=== PATIENT | female | born 1990 | race Caucasian/White ===

== ENCOUNTER 2016-04-28 05:37 | Inpatient (IN) | payer OTHER ==
[~2016-04-28] VITALS: Ht 165.1 cm; Wt 86.3 kg
[2016-04-28] VITALS (14 sets, daily range): BP systolic 107–134; BP diastolic 51–79; PULSE 65–92; RESP 16–20; Ht 165.1 cm; Wt 86.3 kg
[2016-04-28] MEDS ORDERED: OXYTOCIN 30 UNITS/LR 500 ML IV PRN ×2 (06:00→15:30)
[2016-04-28] MEDS ORDERED: METHYLERGONOVINE 0.2 MG INJ IM PRN ×2 (06:00→15:30)
[2016-04-28] MEDS ORDERED: MISOPROSTOL 200 MCG TAB PR PRN ×2 (06:00→15:30)
[2016-04-28] MEDS ORDERED: OXYTOCIN 30 UNITS/LR 500 ML IV SCH ×2 (06:00→07:00)
[2016-04-28] MEDS ORDERED: CARBOPROST 250 MCG INJ IM PRN ×2 (06:00→15:30)
[2016-04-28] MEDS: LACTATED RINGER'S 1,000 ML IV SCH ×3 (06:53→22:36)
[2016-04-28 07:05] LABS: INR 0.95; PROTIME 12.7 Sec (12.2-14.2)
[2016-04-28] MEDS ORDERED: PRENAT PO (07:05)
[2016-04-28] MEDS ORDERED: FERR325C PO (07:05)
[2016-04-28 07:06] LABS: PARTIAL THROMBOPLASTIN TIME 29.5 Sec (25.0-35.0)
[2016-04-28 07:07] LABS: BASOPHILS % 0.5 % (0.0-2.0); EOSINOPHILS # 0.1 10^3/ul (0.0-0.5); EOSINOPHILS % 1.9 % (0.0-7.0); HEMATOCRIT 40.1 % (37.0-47.0); HEMOGLOBIN 13.9 g/dl (12.0-16.0); LYMPHOCYTES # 2.2 10^3/ul (0.8-2.9); LYMPHOCYTES % 30.1 % (15.0-51.0); MEAN CORPUSCULAR HEMOGLOBIN 33.6 pg (29.0-33.0); MEAN CORPUSCULAR HGB CONC 34.6 g/dl (32.0-37.0); MEAN CORPUSCULAR VOLUME 97.2 fl (82.0-101.0); MEAN PLATELET VOLUME 8.4 fl (7.4-10.4); MONOCYTE # 0.7 10^3/ul (0.3-0.9); MONOCYTES % 9.2 % (0.0-11.0); NEUTROPHIL # 4.2 10^3/ul (1.6-7.5); NEUTROPHILS % 58.3 % (39.0-77.0); PLATELET COUNT 239 10^3/UL (140-440); RED BLOOD COUNT 4.13 10^6/ul (4.20-5.40); RED CELL DISTRIBUTION WIDTH 12.7 % (11.5-14.5); UNCORRECTED WBC 7.2 10^3/ul (4.8-10.8); WHITE BLOOD COUNT 7.2 10^3/ul (4.8-10.8)
[2016-04-28 07:09] LABS: CONDITION 1
[2016-04-28] MEDS ORDERED: CITRIC ACID/NA CITRATE 30 ML CUP ONE (07:28)
[2016-04-28] MEDS ORDERED: CITRIC ACID/NA CITRATE 30 ML CUP PO ONE ×2 (07:30→09:30)
[2016-04-28] MEDS ORDERED: OXYTOCIN 10 UNIT INJ ONE ×2 (08:11→09:35)
[2016-04-28] MEDS ORDERED: morphine SULFATE/PF (10 MG/10 ML) INJ ONE (08:11)
[2016-04-28] MEDS: CEFAZOLIN 2 GM/50 ML (PMX) 50 ML IV SCH ×2 (09:00→09:16)
[2016-04-28] MEDS ORDERED: PHENYLephrine (100 MCG/ML) 5ML SYG ONE (09:08)
[2016-04-28] MEDS ORDERED: HYDROmorphONE 1 MG/ML SYG IV PRN ×2 (09:30)
[2016-04-28] MEDS ORDERED: ZOLPIDEM 5 MG TAB PO PRN (09:30)
[2016-04-28] MEDS ORDERED: morphine (1 MG/ML) 10ML SYRINGE IV PRN ×3 (09:30)
[2016-04-28] MEDS ORDERED: NALBUPHINE HCL (10 MG/1 ML) INJ IV PRN (09:30)
[2016-04-28] MEDS ORDERED: NALOXONE (0.4 MG/ML) INJ IV PRN (09:30)
[2016-04-28] MEDS ORDERED: MEPERIDINE 25 MG INJ IV PRN (09:30)
[2016-04-28] MEDS ORDERED: HYDROCODONE/APAP (5/325) TAB PO PRN (09:30)
[2016-04-28] MEDS ORDERED: morphine 4 MG/ML VIAL IV PRN (09:30)
[2016-04-28] MEDS ORDERED: ACETAMINOPHEN 500 MG TAB PO PRN (09:30)
[2016-04-28] MEDS ORDERED: ONDANSETRON 4 MG INJ IV PRN ×2 (09:30)
[2016-04-28] MEDS ORDERED: HYDROmorphONE (0.2 MG/ML) 10ML SYG IV PRN ×3 (09:30)
[2016-04-28] MEDS ORDERED: TRIMETHOBENZAMIDE 100 MG/ML VIAL IM PRN (09:30)
[2016-04-28] MEDS ORDERED: DIPHENHYDRAMINE 50 MG INJ IV PRN ×2 (09:30)
[2016-04-28] MEDS ORDERED: morphine 2 MG INJ IV PRN (09:30)
[2016-04-28] MEDS ORDERED: DEXAMETHASONE 4 MG/ML 1 ML INJ ONE (09:35)
[2016-04-28] MEDS ORDERED: KETOROLAC 30 MG INJ ONE (09:35)
[2016-04-28] MEDS ORDERED: ONDANSETRON 4 MG INJ ONE (09:35)
--- NOTE | 2016-04-28 10:30 | HP ---
Date/Time of Note Date/Time of Note DATE: 04/28/16 TIME: 10:22 OB - History Hx of Present Free Text/Dictation 26 years old female [employer] 3 para 2 history of previous the EDC of May 05, 2016 admitted to [facility] at 39 weeks section to undergo a repeat section since patient has requested bilateral tubal ligation she would have this procedure with her section she has been counseled regarding failure rate of tubal ligation increased risk of ectopic , future failure to conceive and she has consented for this procedure. This patient has been under the care of the 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 Every 28-32 days lasting for 5 days history of 2 previous section and arm surgery and years ago Allergies: She is allergic to latex Social habits: Denies a smoking or drinking Review of system then normal Estimated Due Date: May 05, 2016 : 3 Para: 2 Care: None Ultrasounds: Normal mid trimester US Obstetrical Complications: None Medical Complications: None Past Family/Social History * Past Medical, Surgical, Family and Obstetric Histories reviewed from chart. Rubella: immune RPR/VDRL: Negative GBS Status: Negative HBsAG: Negative OB Admission Exam Vital Signs Vital Signs Vital Signs Date Time Temp Pulse Resp B/P Pulse Ox O2 Delivery O2 Flow Rate FiO2 04/28/16 06:45 98.0 91 18 134/79 Room Air Physical Exam HEENT: WNL Heart: Rhythm Normal Lungs: Clear, Equal Abdomen: WNL Extremities: Normal Reflexes: Normal Cervical Dilatation: None Effacement: 0% Station: -2 Membranes: Intact Heart Rate: 130's Decelerations: No Decelerations Last 72 hours Lab Results CBC & BMP 04/28/16 06:20 ROSIE JACKSON MD Apr 28, 2016 10:30
--- NOTE | 2016-04-28 12:58 | OPR ---
DATE OF OPERATION: 04/28/2016 PREOPERATIVE DIAGNOSES: 1. Intrauterine at 39 weeks' gestation. 2. History of 2 previous sections. 3. Request for voluntary sterilization, bilateral tubal ligation. POSTOPERATIVE DIAGNOSES: 1. Intrauterine at 39 weeks' gestation. 2. History of 2 previous sections. 3. Request for voluntary sterilization, bilateral tubal ligation. PROCEDURE: Repeat transverse low cervical section, bilateral tubal ligation. SURGEON: Rosie Nelson MD DIRECTOR [employer]: Marleny Lin MD ANESTHESIA: Spinal. ANESTHESIOLOGIST: Dr. Yeh FINDINGS: Live baby boy with Apgars 8 and 9. DETAILS OF THE PROCEDURE: Under satisfactory spinal anesthesia, the patient was prepped and draped and placed in the supine position, tilted to the left. Pfannenstiel incision was made, carried thro ugh the subcutaneous tissue. Bleeders brought under control with electrocautery. Fascia incised to the length of the incision. Rectus muscle divided in midline. Peritoneum exposed, entered through a transverse incision. Exploration of abdomen revealed a gravid uterus at term, normal appearing t ubes and ovaries. Lower segment of the uterus was extremely thinned out to the thickness of 2 mm. Bladder flap was developed. Transverse incision was made in the lower segment of the uterus. Amnio tic sac ruptured. Clear amniotic fluid noted. Live baby boy was delivered from unengaged vertex. Nasal oropharyngeal suction was performed. Baby handed to the team for immediate attention . Patient received 20 units of Pitocin. Placenta delivered manually intact. Uterine cavity cleane d with wet sponge and drainage established. Uterus closed in 2 layers using Monocryl #1 in continuo us fashion. Tubal ligation performed by identifying the right fallopian tube. The fimbria and ampullary section of the tube was grasped by a Joe. Suture material used #0 plain catgut which was reinforced wi th the same suture material. That portion of the tube was excised and submitted for pathology. The same procedure was performed for the opposite side. Peritoneal cavity was irrigated with warm sali ne. Sponge, needle and instrument reported to be correct. Abdominal peritoneum closed with 2-0 chr omic catgut continuously. Rectus muscle approximated with few interrupted 2-0 chromic catgut. Fasc ia closed with #1 PDS in continuous fashion. Subcutaneous tissue approximated with 2-0 chromic catg ut and the skin closed with juancarlos. Estimated blood loss 500 to 600 mL. Urine bag contained 200 m L of clear urine. Patient tolerated the procedure well and was transferred to the recovery room in a good condition. Dictated By: ROSIE JOSHI/KEVIN Conf#: [id number] DID#: [id number]
[2016-04-28] MEDS: OXYTOCIN 30 UNITS/LR 500 ML IV SCH ×3 (15:08→21:45)
[2016-04-28] MEDS ORDERED: OXYCODONE/ACETAMINOPHEN (5/325) TAB PO PRN (15:30)
[2016-04-28] MEDS ORDERED: LANOLIN 7 GM TUBE TOP PRN (15:30)
[2016-04-28] MEDS ORDERED: ACETAMINOPHEN/CODEINE #3 TAB PO PRN ×2 (15:30)
[2016-04-28] MEDS: KETOROLAC 30 MG INJ IV PRN ×2 (15:48→22:50)
[2016-04-28] MEDS ORDERED: CEFAZOLIN 1 GM/50 ML (PMX) 50 ML IVPB SCH (17:00)
--- NOTE | 2016-04-28 20:28 | OPPN ---
Date/Time of Note Date/Time of Note DATE: 04/28/16 TIME: 20:13 Operative/Procedure Note 39weeks ,previous c section#2 request for tubal ligation Pre-Operative Diagnosis same as above Post-Operative Diagnosis same as above Procedure repeat c section bilateral tubal ligation Surgeon: ROSIE JACKSON MD [employer] Coach: AMILCAR UGARTE MD Anesthesiologist: PHAN CABRAL MD Findings live baby boy 8/9 Implants/Grafts: Not applicable Estimated blood loss: other Drains: Not applicable Specimens: Not Applicable Complications: None Anesthesia type: spinal ROSIE JACKSON MD Apr 28, 2016 20:23
[2016-04-29] VITALS: BP 115/55; PULSE 79; RESP 18
--- NOTE | 2016-04-29 01:05 | CONS ---
Date/Time of Note Date/Time of Note DATE: 04/29/16 TIME: 01:03 Consultation Date/Type/Reason Admit Date/Time Apr 28, 2016 at 05:37 Initial Consult Date 04/28/16 Type of Consultation: Anesthesia Reason for Consultation Repeat in Labor 24 HR Interval Summary Free Text/Dictation Patient is a 26 year old female went under , due to repeat in labor. Spinal anesthesia was used for her surgery and Duramorph was given intrathecally for post op pain control. Surgery went uneventful. Patient is doing well, vital sign stable Patient is afebrile, sensory and motor are intact , Pain is well controlled. No nausea or vomiting noted. No apnea reported. Patient will be followed up by her primary team. Exam/Review of Systems Vital Signs Vitals Vital Signs Date Time Temp Pulse Resp B/P Pulse Ox O2 Delivery O2 Flow Rate FiO2 04/29/16 00:00 98.4 79 18 115/55 Room Air 04/28/16 12:28 97 Intake and Output 04/28/16 04/28/16 04/29/16 15:00 23:00 07:00 Intake Total 1050 ml 500 ml 500 ml Output Total 1050 ml 700 ml 200 ml Balance 0 ml -200 ml 300 ml Results Result Diagram: 04/28/16 0620 Results 24 hrs Laboratory Tests Test 04/28/16 06:20 Activated Partial Thromboplast Time 29.5 Basophils # 0.0 Basophils % 0.5 Eosinophils # 0.1 Eosinophils % 1.9 Hematocrit 40.1 # Hemoglobin 13.9 # Hepatitis B Surface Antigen NEGATIVE INR International Normalized Ratio 0.95 Lymphocytes # 2.2 Lymphocytes % 30.1 Mean Corpuscular Hemoglobin 33.6 #H Mean Corpuscular Hemoglobin Concent 34.6 Mean Corpuscular Volume 97.2 Mean Platelet Volume 8.4 Monocytes # 0.7 Monocytes % 9.2 Neutrophils # 4.2 Neutrophils % 58.3 Nucleated Red Blood Cells # 0.0 Nucleated Red Blood Cells % 0.0 Platelet Count 239 # Prothrombin Time 12.7 Prothrombin Time Ratio 1.0 Rapid Plasma Reagin NONREACTIVE Red Blood Count 4.13 L Red Cell Distribution Width 12.7 # White Blood Count 7.2 # Medications Medications Current Medications Lactated Ringer's (Lr) 1,000 ml @ 125 mls/hr Q8H IV Last administered on 07:30; Admin Dose 125 MLS/HR; Start 04/28/16 at 06:36 Hydromorphone HCl (Dilaudid) 0.2 mg Q2H PRN IV PAIN LEVEL 1-5; Start 04/28/16 at 09:30; Stop 04/29/16 at 09:00 Hydromorphone HCl (Dilaudid) 0.4 mg Q2H PRN IV PAIN LEVEL 6-10; Start 04/28/16 at 09:30; Stop 04/29/16 at 09:00 Morphine Sulfate (morphine) 2 mg Q2H PRN IV PAIN LEVEL 1-5; Start 04/28/16 at 09 :30; Stop 04/29/16 at 09:00 Morphine Sulfate (morphine) 4 mg Q2H PRN IV PAIN LEVEL 6-10; Start 04/28/16 at 09:30; Stop 04/29/16 at 09:00 Ketorolac Tromethamine (Toradol) 30 mg Q6H PRN IV PAIN LEVEL 6-10 Last administered on 04/28/16 22:50; Admin Dose 30 MG; Start 04/28/16 at 09:30; Stop 04/29/16 at 09:00 Acetaminophen/ Hydrocodone Bitart ([place] (5/325)) 1 tab Q4H PRN PO PAIN LEVEL 4 -6; Start 04/28/16 at 09:30; Stop 04/29/16 at 09:00 Diphenhydramine HCl (Benadryl) 25 mg Q4H PRN IV PRURITUS; Start 04/28/16 at 09: 30; Stop 04/29/16 at 09:00 Nalbuphine HCl (Nubain) 10 mg Q4H PRN IV PRURITUS; Start 04/28/16 at 09:30; Stop 04/29/16 at 09:00 Ondansetron HCl (Zofran Inj) 4 mg Q6H PRN IV NAUSEA AND/OR VOMITING; Start 04/28 at 09:30; Stop 04/29/16 at 09:00 Trimethobenzamide HCl (Tigan) 200 mg Q6H PRN IM NAUSEA AND/OR VOMITING; Start 04/28/16 at 09:30; Stop 04/29/16 at 09:00 Naloxone HCl (Narcan) 0.2 mg Q2M PRN IV FOR RESP RATE 8 OR LESS; Start 04/28/16 at 09:30; Stop 04/29/16 at 09:00 Acetaminophen/ Codeine Phosphate (Tylenol No.3) 1 tab Q4H PRN PO PAIN LEVEL 4-6 ; Start 04/28/16 at 15:30 Acetaminophen/ Codeine Phosphate (Tylenol No.3) 2 tab Q4H PRN PO PAIN LEVEL 7- 10; Start 04/28/16 at 15:30 Oxycodone/ Acetaminophen (Percocet (5/ 325)) 1 tab Q4H PRN PO PAIN LEVEL 4-6; Start 04/28/16 at 15:30 Oxycodone/ Acetaminophen (Percocet (5/ 325)) 2 tab Q4H PRN PO PAIN LEVEL 7-10; Start 04/28/16 at 15:30 Ibuprofen (Motrin) 600 mg Q6 PO ; Start 04/29/16 at 12:00 Simethicone (Mylicon) 160 mg Q8H PRN PO DISTENSION/GAS/BLOATING; Start 04/28/16 at 15:30 Senna/Docusate Sodium (Senokot-S) 1 tab BID PO ; Start 04/29/16 at 21:00 Diphtheria/ Tetanus/Acell Pertussis 0.5 ml 0.5 ml ONCE ONCE IM* ; Start at 09:00; Stop 05/01/16 at 09:01 Oxytocin/Lactated Ringer's 500 ml @ 0 mls/hr ONCE PRN IV For Hemorrhage Management; Start 04/28/16 at 15:30 Methylergonovine Maleate (Methergine) 0.2 mg ONCE PRN IM VAGINAL BLEEDING; Start 04/28/16 at 15:30 Carboprost Tromethamine (Hemabate) 250 mcg ONCE PRN IM VAGINAL BLEEDING; Start 04/28/16 at 15:30 Misoprostol 1000 mcg 1,000 mcg ONCE PRN [place] VAGINAL BLEEDING; Start 04/28/16 at 15 :30 Oxytocin/Lactated Ringer's 500 ml @ 125 mls/hr Q4H IV Last administered on 04/28t 21:45; Admin Dose 125 MLS/HR; Start 04/28/16 at 15:08 PHAN CABRAL MD Apr 29, 2016 01:05
[2016-04-29] MEDS: LACTATED RINGER'S 1,000 ML IV SCH ×3 (01:40→22:36)
[2016-04-29] MEDS: OXYTOCIN 30 UNITS/LR 500 ML IV SCH ×6 (03:08→23:08)
[2016-04-29 04:26] VITALS: BP 112/68; PULSE 78; RESP 18
[2016-04-29] MEDS: KETOROLAC 30 MG INJ IV PRN (05:00)
[2016-04-29 06:14] LABS: BASOPHILS % 0.4 % (0.0-2.0); EOSINOPHILS # 0.1 10^3/ul (0.0-0.5); EOSINOPHILS % 0.9 % (0.0-7.0); HEMATOCRIT 34.6 % (37.0-47.0); HEMOGLOBIN 11.9 g/dl (12.0-16.0); LYMPHOCYTES # 2.6 10^3/ul (0.8-2.9); LYMPHOCYTES % 23.7 % (15.0-51.0); MEAN CORPUSCULAR HEMOGLOBIN 33.9 pg (29.0-33.0); MEAN CORPUSCULAR HGB CONC 34.5 g/dl (32.0-37.0); MEAN CORPUSCULAR VOLUME 98.4 fl (82.0-101.0); MEAN PLATELET VOLUME 8.1 fl (7.4-10.4); MONOCYTE # 0.8 10^3/ul (0.3-0.9); MONOCYTES % 7.3 % (0.0-11.0); NEUTROPHIL # 7.3 10^3/ul (1.6-7.5); NEUTROPHILS % 67.7 % (39.0-77.0); PLATELET COUNT 195 10^3/UL (140-440); RED BLOOD COUNT 3.52 10^6/ul (4.20-5.40); RED CELL DISTRIBUTION WIDTH 12.5 % (11.5-14.5); UNCORRECTED WBC 10.8 10^3/ul (4.8-10.8); WHITE BLOOD COUNT 10.8 10^3/ul (4.8-10.8)
[2016-04-29 06:18] LABS: CONDITION 1
[2016-04-29 07:30] VITALS: BP 108/55; PULSE 76; RESP 18
[2016-04-29] MEDS: IBUPROFEN 600 MG TAB PO SCH ×2 (11:40→17:36)
[2016-04-29] MEDS: OXYCODONE/ACETAMINOPHEN (5/325) TAB PO PRN ×2 (13:21→20:39)
--- NOTE | 2016-04-29 14:26 | PN ---
Date/Time of Note Date/Time of Note DATE: 04/29/16 TIME: 14:24 OB Subjective Subjective Subjective Postop day 1 Afebrile vital sign a stable abdomen soft incision dry bowel sounds present lochia normal extremity normal ambulation recommended ROSIE JACKSON MD Apr 29, 2016 14:26
[2016-04-29 16:04] VITALS: BP 120/72; PULSE 80; RESP 18
[2016-04-29 19:30] VITALS: BP 116/65; PULSE 79; RESP 20
[2016-04-29] MEDS: SENNA/DOCUSATE NA (8.6MG/50MG) TAB PO SCH (20:40)
[2016-04-30] MEDS: IBUPROFEN 600 MG TAB PO SCH ×5 (00:55→23:33)
[2016-04-30] MEDS: OXYTOCIN 30 UNITS/LR 500 ML IV SCH (03:08)
[2016-04-30] MEDS: OXYCODONE/ACETAMINOPHEN (5/325) TAB PO PRN ×4 (03:46→20:28)
[2016-04-30 04:45] VITALS: BP 120/61; PULSE 70; RESP 20
[2016-04-30] MEDS: SENNA/DOCUSATE NA (8.6MG/50MG) TAB PO SCH ×2 (08:51→20:28)
[2016-04-30 08:52] VITALS: BP 123/84; PULSE 82; RESP 18
[2016-04-30 16:00] VITALS: BP 127/82; PULSE 87; RESP 18
--- NOTE | 2016-04-30 18:26 | PN ---
Date/Time of Note Date/Time of Note DATE: 04/30/16 TIME: 18:25 OB Subjective Subjective Subjective Post day 2 Vital sign a stable afebrile abdomen soft lochia normal extremity normal incision dry bowel sound present no bowel movement enema recommended ROSIE JACKSON MD Apr 30, 2016 18:26
[2016-04-30] MEDS ORDERED: NA PHOSPHATE/BIPHOS 133 ML ENEMA PR ONE ×2 (18:30)
[2016-04-30 20:28] VITALS: BP 134/84; PULSE 91; RESP 20
[2016-05-01 03:45] VITALS: BP 122/89; PULSE 74; RESP 18
[2016-05-01] MEDS: IBUPROFEN 600 MG TAB PO SCH ×2 (05:35→11:59)
[2016-05-01 07:43] VITALS: BP 118/68; PULSE 73; RESP 18
[2016-05-01] MEDS: OXYCODONE/ACETAMINOPHEN (5/325) TAB PO PRN ×2 (07:43→12:53)
[2016-05-01] MEDS ORDERED: DIPHTH/TET/ACEL PERTUSS (ADULT) 0.5 ML VIAL IM* ONE (09:00)
[2016-05-01] MEDS: SENNA/DOCUSATE NA (8.6MG/50MG) TAB PO SCH (09:31)
--- NOTE | 2016-05-01 09:40 | PD.PPDC ---
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
--- NOTE | 2016-05-01 09:44 | DS ---
Date/Time of Note Date/Time of Note DATE: 05/01/16 TIME: 09:41 Obstetrical Discharge Record Final Diagnosis Final Diagnosis: Term delivered Section Section: Repeat Condition on Discharge Physical Assessment Last Vitals: Post day 3 Vital sign a stable afebrile abdomen soft incision dry bowel sounds present had normal BM extremity normal home care instructions given recommended to make appointment in 4 days to DC juancarlos at the clinic Current Medications Medications (Trade) Dose Ordered Sig/Lara Route PRN Reason Start Time Stop Time Status Last Admin Dose Admin Cefazolin Sodium/ Dextrose 50 ml @ 100 mls/hr ONCE IV 04/28/16 06:00 04/28/16 15:17 DC 04/28/16 09:00 Oxytocin/Lactated Ringer's 500 ml @ 125 mls/hr ONCE IV 04/28/16 06:00 04/28/16 15:17 DC 04/28/16 12:31 Oxytocin/Lactated Ringer's 500 ml @ 0 mls/hr ONCE PRN IV For Hemorrhage Management 04/28/16 06:00 04/28/16 15:17 DC Methylergonovine Maleate (Methergine) 0.2 mg ONCE PRN IM VAGINAL BLEEDING 04/28/16 06:00 04/28/16 15:17 DC Carboprost Tromethamine (Hemabate) 250 mcg ONCE PRN IM VAGINAL BLEEDING 04/28/16 06:00 04/28/16 15:17 DC Misoprostol 1000 mcg 1,000 mcg ONCE PRN [place] VAGINAL BLEEDING 04/28/16 06:00 04/28/16 15:17 DC Lactated Ringer's 1,000 ml @ 125 mls/hr Q8H IV 04/28/16 06:36 05/01/16 06:15 DC 04/29/16 01:40 Oxytocin/Lactated Ringer's 500 ml @ 125 mls/hr ONCE IV 04/28/16 07:00 04/28/16 15:17 DC Citric Acid/ Sodium Citrate (Bicitra) 30 ml ONCE ONCE PO 04/28/16 07:30 04/28/16 07:41 DC 04/28/16 07:42 Citric Acid/ Sodium Citrate (Bicitra) 30 ml STK-MED ONCE .ROUTE 04/28/16 07:28 04/28/16 07:29 DC Morphine Sulfate (Duramorph) 10 mg STK-MED ONCE .ROUTE 04/28/16 08:11 04/28/16 08:12 DC Oxytocin (Oxytocin) 10 units STK-MED ONCE .ROUTE 04/28/16 08:11 04/28/16 08:12 DC Phenylephrine HCl (David-Synephrine Inj Syg) 500 mcg STK-MED ONCE .ROUTE 04/28/16 09:08 04/28/16 09:09 DC Citric Acid/ Sodium Citrate (Bicitra) 30 ml pre-procedure ONCE PO 04/28/16 09:30 04/28/16 09:31 DC Morphine Sulfate (morphine (REC)) 2 mg PACU ORDER PRN IV MILD PAIN LEVEL 1-3 04/28/16 09:30 04/28/16 15:17 DC Morphine Sulfate (morphine (REC)) 4 mg PACU ORDER PRN IV MODERATE PAIN LEVEL 4-6 04/28/16 09:30 04/28/16 15:17 DC Morphine Sulfate (morphine (REC)) 6 mg PACU ORDER PRN IV SEVERE PAIN LEVEL 7-10 04/28/16 09:30 04/28/16 15:17 DC Hydromorphone HCl (Dilaudid (Rec)) 0.2 mg PACU ORDER PRN IV MILD PAIN LEVEL 1-3 04/28/16 09:30 04/28/16 15:17 DC Hydromorphone HCl (Dilaudid (Rec)) 0.4 mg PACU ORDER PRN IV MODERATE PAIN LEVEL 4-6 04/28/16 09:30 04/28/16 15:17 DC 04/28/16 11:03 Hydromorphone HCl (Dilaudid (Rec)) 0.6 mg PACU ORDER PRN IV SEVERE PAIN LEVEL 7-10 04/28/16 09:30 04/28/16 15:17 DC Ondansetron HCl (Zofran Inj) 4 mg PACU ORDER PRN IV NAUSEA AND/OR VOMITING 04/28/16 09:30 04/28/16 15:17 DC Meperidine HCl (Demerol) 25 mg PACU ORDER PRN IV POST-OP RIGORS 04/28/16 09:30 04/28/16 15:17 DC Diphenhydramine HCl (Benadryl) 25 mg PACU ORDER PRN IV PRURITUS 04/28/16 09:30 1/7/17 15:17 DC Hydromorphone HCl (Dilaudid) 0.2 mg Q2H PRN IV PAIN LEVEL 1-5 04/28/16 09:30 04/29/16 09:00 DC Hydromorphone HCl (Dilaudid) 0.4 mg Q2H PRN IV PAIN LEVEL 6-10 04/28/16 09:30 04/29/16 09:00 DC Morphine Sulfate (morphine) 2 mg Q2H PRN IV PAIN LEVEL 1-5 04/28/16 09:30 04/29/16 09:00 DC Morphine Sulfate (morphine) 4 mg Q2H PRN IV PAIN LEVEL 6-10 04/28/16 09:30 04/29/16 09:00 DC Ketorolac Tromethamine (Toradol) 30 mg Q6H PRN IV PAIN LEVEL 6-10 04/28/16 09:30 04/29/16 09:00 DC 04/29/16 05:00 Acetaminophen (Tylenol Tab) 500 mg Q4H PRN PO PAIN LEVEL 1-3 04/28/16 09:30 04/28/16 15:17 DC Acetaminophen/ Hydrocodone Bitart ([place] (5/325)) 1 tab Q4H PRN PO PAIN LEVEL 4-6 04/28/16 09:30 04/29/16 09:00 DC Diphenhydramine HCl (Benadryl) 25 mg Q4H PRN IV PRURITUS 04/28/16 09:30 04/29/16 09:00 DC Nalbuphine HCl (Nubain) 10 mg Q4H PRN IV PRURITUS 04/28/16 09:30 04/29/16 09:00 DC Ondansetron HCl (Zofran Inj) 4 mg Q6H PRN IV NAUSEA AND/OR VOMITING 04/28/16 09:30 04/29/16 09:00 DC Trimethobenzamide HCl (Tigan) 200 mg Q6H PRN IM NAUSEA AND/OR VOMITING 04/28/16 09:30 04/29/16 09:00 DC Zolpidem Tartrate (Ambien) 5 mg HS MAY REPEAT X 1 PRN PO INSOMNIA 04/28/16 09:30 04/29/16 09:00 DC Naloxone HCl (Narcan) 0.2 mg Q2M PRN IV FOR RESP RATE 8 OR LESS 04/28/16 09:30 04/29/16 09:00 DC Miscellaneous Information (* Miscellaneous Pharmacy Order) DURAMORPH: 0.2 MG SPI... GIVEN NEURAXIAL XX 04/28/16 09:30 04/28/16 09:30 DC Ondansetron HCl (Zofran Inj) 4 mg STK-MED ONCE .ROUTE 04/28/16 09:35 04/28/16 09:36 DC Oxytocin (Oxytocin) 10 units STK-MED ONCE .ROUTE 04/28/16 09:35 04/28/16 09:36 DC Ketorolac Tromethamine (Toradol) 30 mg STK-MED ONCE .ROUTE 04/28/16 09:35 04/28/16 09:36 DC Dexamethasone (Decadron) 4 mg STK-MED ONCE .ROUTE 04/28/16 09:35 04/28/16 09:36 DC Acetaminophen/ Codeine Phosphate (Tylenol No.3) 1 tab Q4H PRN PO PAIN LEVEL 4-6 04/28/16 15:30 Acetaminophen/ Codeine Phosphate (Tylenol No.3) 2 tab Q4H PRN PO PAIN LEVEL 7-10 04/28/16 15:30 Oxycodone/ Acetaminophen (Percocet (5/ 325)) 1 tab Q4H PRN PO PAIN LEVEL 4-6 04/28/16 15:30 Oxycodone/ Acetaminophen (Percocet (5/ 325)) 2 tab Q4H PRN PO PAIN LEVEL 7-10 04/28/16 15:30 05/01/16 07:43 Ibuprofen (Motrin) 600 mg Q6 PO 04/29/16 12:00 05/01/16 05:35 Simethicone (Mylicon) 160 mg Q8H PRN PO DISTENSION/GAS/BLOATING 04/28/16 15:30 04/30/16 11:54 Senna/Docusate Sodium (Senokot-S) 1 tab BID PO 04/29/16 21:00 05/01/16 09:31 Lanolin (Euv-D-Nbhqld) 1 applic BEDSIDE MEDICATION PRN TOP BEDSIDE FOR JF TO NIPPLES 04/28/16 15:30 04/28/16 22:50 Diphtheria/ Tetanus/Acell Pertussis 0.5 ml 0.5 ml ONCE ONCE IM* 05/01/16 09:00 05/01/16 09:01 DC Oxytocin/Lactated Ringer's 500 ml @ 0 mls/hr ONCE PRN IV For Hemorrhage Management 04/28/16 15:30 Methylergonovine Maleate (Methergine) 0.2 mg ONCE PRN IM VAGINAL BLEEDING 04/28/16 15:30 Carboprost Tromethamine (Hemabate) 250 mcg ONCE PRN IM VAGINAL BLEEDING 04/28/16 15:30 Misoprostol 1000 mcg 1,000 mcg ONCE PRN [place] VAGINAL BLEEDING 04/28/16 15:30 Cefazolin Sodium 50 ml @ 100 mls/hr ONCE IVPB 04/28/16 17:00 04/28/16 17:29 DC 04/28/16 17:19 Oxytocin/Lactated Ringer's 500 ml @ 125 mls/hr Q4H IV 04/28/16 15:08 05/01/16 06:15 DC 04/28/16 21:45 Sodium Biphosphate/ Sodium Phosphate (Fleet Enema) 133 ml ONCE ONCE AL 04/30/16 18:30 04/30/16 18:31 UNV Sodium Biphosphate/ Sodium Phosphate (Fleet Enema) 133 ml ONCE ONCE AL 04/30/16 18:30 04/30/16 18:31 DC 04/30/16 20:28 Voiding: Yes Bowel Movement: Yes Breast: Soft, non-tender, Filling Abdomen and Incision: Incision healing well dry containing free of inflammation Calf Tenderness: No Patient Condition: Good ROSIE JACKSON MD May 01, 2016 09:44
== END 2016-05-01 14:20 | disposition home or self-care (01) | DRG 766 ==
LOC: L-D 05:37 → PP1 13:43
PROVIDERS: ADMIT Obstetrics & Gynecology; ATTEND Obstetrics & Gynecology
PROC: 0UT70ZZ Resection of Bilateral Fallopian Tubes, Open Approach (ICD-10-PCS; 2016-04-28)
PROC: 10D00Z1 Extraction of Products of Conception, Low, Open Approach (ICD-10-PCS; principal; 2016-04-28 08:00)
DX: O34.211 Maternal care for low transverse scar from previous cesarean delivery (principal); Z30.2 Encounter for sterilization; Z3A.39 39 weeks gestation of pregnancy; Z37.0 Single live birth
CPT/HCPCS: 85025; 85610; 85730; 86592; 86850; 86900; 86901; 87340; 88302; 90715; 99464; J0690; J1100; J1170; J1885; J2274; J2370; J2405; J2590; J7120